=== PATIENT | female | born 1950 | race Caucasian/White ===

== ENCOUNTER 2021-11-14 13:20 | Emergency (ER) | payer BC ==
[2021-11-14 14:11] LABS: ESTIMATED GFR 57 MLS/MIN (>60)
[2021-11-14] MEDS ORDERED: GI Cocktail Oral Solution 30 ML PO ONE (14:50)
== END 2021-11-14 15:49 | disposition home or self-care (01) ==
LOC: LB.ED 13:20
DX: R10.12 Left upper quadrant pain (principal); Z20.822 Contact with and (suspected) exposure to COVID-19
CPT/HCPCS: 36415; 80048; 85025; 87635; 87804; 99284; A9270; 99283; U0002

== ENCOUNTER 2021-11-17 10:41 | Emergency (ER) | payer BC, MEDICARE ==
[2021-11-17 11:43] LABS: ESTIMATED GFR > 60 MLS/MIN (>60)
== END 2021-11-17 12:35 | disposition home or self-care (01) ==
LOC: LB.ED 10:41
DX: F41.9 Anxiety disorder, unspecified (principal); E78.00 Pure hypercholesterolemia, unspecified; I10 Essential (primary) hypertension; Z79.899 Other long term (current) drug therapy; Z79.82 Long term (current) use of aspirin; Z20.822 Contact with and (suspected) exposure to COVID-19
CPT/HCPCS: 36415; 71045; 80048; 84484; 85025; 87804; 93005; 99285; U0002; 93010; 99283